=== PATIENT | female | born 1980 | race Caucasian/White ===

== ENCOUNTER 2016-10-08 09:09 | Outpatient (CLI) | payer OTHER ==
[~2016-10-08] VITALS: Ht 170.2 cm; Wt 89.8 kg
[~2016-10-08 09:09] MED LIST: AMLO5TAB2 PO; ETAN50PE SQ; FEXO60CA19; FOLI1TAB24 PO; HYDR-3583 PO; HYDROCODONE BIT/ACET; LISI40TA PO; METH2.5T PO; NF-ALLE180; OMEG-12 PO; SULF1TAB38; VITA1CAP59 PO
[2016-10-08 09:19] VITALS: BP 136/82
[2016-10-08 09:55] LABS: BASOPHILS % (AUTO) 0 % (0-10); EOSINOPHILS # (AUTO) 0.1 10^3/uL (0.0-0.3); EOSINOPHILS % (AUTO) 1 % (0-10); LYMPHOCYTES % (AUTO) 32 % (12-44); MEAN CORPUSCULAR HEMOGLOBIN 31 PG (25-34); MEAN CORPUSCULAR HGB CONC 33 G/DL (32-36); MEAN CORPUSCULAR VOLUME 94 FL (80-99); MEAN PLATELET VOLUME 10.6 FL (7.4-10.4); MONOCYTES # (AUTO) 0.4 X 10^3 (0.0-1.0); MONOCYTES % (AUTO) 7 % (0-12); NEUTROPHILS # (AUTO) 3.7 X 10^3 (1.8-7.8); NEUTROPHILS % (AUTO) 60 % (42-75); PLATELET COUNT 190 10^3/uL (130-400); RED BLOOD COUNT 4.79 10^6/uL (4.35-5.85); RED CELL DISTRIBUTION WIDTH 12.7 % (10.0-14.5); WHITE BLOOD COUNT 6.3 10^3/uL (4.3-11.0)
== END 2016-10-08 09:45 | disposition home or self-care (01) ==
LOC: PREOP 09:09
PROVIDERS: ATTEND Obstetrics & Gynecology
DX: Z01.812 Encounter for preprocedural laboratory examination (principal); Z11.2 Encounter for screening for other bacterial diseases; N93.8 Other specified abnormal uterine and vaginal bleeding; D64.9 Anemia, unspecified
CPT/HCPCS: 36415; 84703; 85025; 87081

== ENCOUNTER 2016-10-09 10:15 | Day surgery (SDC) | payer OTHER ==
[~2016-10-09] VITALS: Ht 170.2 cm; Wt 89.8 kg
[2016-10-09] MEDS ORDERED: LIDOCAINE PF 2% 5 ML (XYLOCAINE) VIAL ONE (10:33)
[2016-10-09] MEDS ORDERED: DEXAMETHASONE 10 MG/ML (DECADRON) 1 ML VIAL ONE (10:33)
[2016-10-09] MEDS ORDERED: ROCURONIUM 50 MG/5 ML (ZEMURON) VIAL IV ONE (10:33)
[2016-10-09] MEDS ORDERED: MIDAZOLAM 2 MG/2 ML (VERSED) VIAL ONE (10:33)
[2016-10-09] MEDS ORDERED: proPOfol 200 MG/20 ML (DIPRIVAN) VIAL IV ONE (10:33)
[2016-10-09] MEDS ORDERED: SEVOFLURANE (ULTANE) 15 ML INHAL SOLN ONE ×5 (10:33→13:49)
[2016-10-09] MEDS ORDERED: LACTATED RINGERS 1,000 ML IV ONE (10:33)
[2016-10-09] MEDS ORDERED: ONDANSETRON 4 MG/2 ML (SDV) Z0FRAN ONE (10:33)
[2016-10-09] MEDS ORDERED: fentaNYL INJECTION 100 MCG/2 ML AMP ONE (10:34)
[2016-10-09 10:55] VITALS: BP 136/79
[2016-10-09] MEDS ORDERED: ceFAZolin 1 GM/NS 50 ML IVPB IV ONE ×2 (11:00)
[2016-10-09] MEDS ORDERED: CATHETER FLUSH 10 ML SYR IV PRN (11:00)
[2016-10-09] MEDS: LACTATED RINGERS 1,000 ML IV PRN ×2 (11:04→12:30)
[2016-10-09] MEDS ORDERED: BUPIVACAINE 0.25% 30 ML (SENSORCAINE) VIAL ONE (11:35)
[2016-10-09] MEDS ORDERED: LACTATED RINGERS 1,000 ML IV PRN (11:39)
--- NOTE | 2016-10-09 11:50 | Progress Note-Pre Operative ---
Pre-Operative Progress Note H&P Reviewed The H&P was reviewed, patient examined and no changes noted. Date Seen by Provider: Oct 09, 2016 Time Seen by Provider: 11:50 Date H&P Reviewed: Oct 09, 2016 Time H&P Reviewed: 11:50 Pre-Operative Diagnosis: left ovary mass/DON/pelvic pain HAMZAH ALBERTS MD Oct 09, 2016 11:50 am
--- NOTE | 2016-10-09 11:52 | Progress Note-Post Operative ---
Post-Operative Progess Note Surgeon (s)/Carpet Mechanic (s) Surgeon HAMZAH ALBERTS MD Carpet Mechanic: Rosaline Flores are in Pre-Operative Diagnosis left ovary mass/DUB/pelvic pain and right shoulder pigmented lesion Post-Operative Diagnosis same with pelvic endometriosis and likely adenomyosis and with pelvic adhesions and with pathology pending Procedure & Operative Findings Date of Procedure 10/09/16 Procedure Performed/Findings excision right shoulder lesion and TLH with left salpingo-oophorectomy and right salpingectomy, and adhesio lysis Anesthesia Type Gen. Estimated Blood Loss Estimated blood loss (mL): lless than 100 cc Specimens/Packing Specimens Removed uterus both tubes left ovary skin lesion right shoulder Packing: none HAMZAH ALBRETS MD Oct 09, 2016 11:52
[2016-10-09] MEDS ORDERED: fentaNYL INJECTION 100 MCG/2 ML AMP IVP PRN ×2 (12:00→13:45)
[2016-10-09] MEDS ORDERED: WATER (STERILE) FOR INJ 10 ML BTL INJ ONE (12:00)
[2016-10-09] MEDS ORDERED: KETOROLAC 30 MG/ML VIAL IVP SCH (12:00)
[2016-10-09] MEDS ORDERED: ONDANSETRON 4 MG/2 ML (SDV) Z0FRAN IVP PRN ×2 (12:00→13:45)
[2016-10-09] MEDS ORDERED: MEPERIDINE (DEMEROL) INJ 50 MG/ML IVP PRN (13:45)
[2016-10-09] MEDS ORDERED: morphine INJ 10 MG/ML 1ML (SYR OR VIAL) IVP PRN (13:45)
[2016-10-09] MEDS: D5 LR IV SOLUTION 1,000 ML IV SCH ×3 (15:38→22:47)
[2016-10-09 16:00] VITALS: BP 130/78
[2016-10-09] MEDS: oxyCODONE/APAP 10/325MG (PERCOCET 10) TABLET PO PRN ×2 (16:10→18:36)
[2016-10-09 20:30] VITALS: BP 124/73
[2016-10-09] MEDS: KETOROLAC 30 MG/ML VIAL IVP SCH (20:51)
[2016-10-10 00:40] VITALS: BP 114/70
[2016-10-10] MEDS: KETOROLAC 30 MG/ML VIAL IVP SCH ×2 (02:33→08:47)
--- NOTE | 2016-10-10 07:49 | Progress Note-Standard ---
Standard Progress Note Progress Notes/Assess & Plan Date Seen by Provider: Oct 10, 2016 Time Seen by Provider: 07:48 Progress/Assessment & Plan patient without complaint. She is ambulating, voiding, tolerating by mouth, has good pain control, is requesting discharge home. Vital Signs Date Time Temp Pulse Resp B/P (MAP) Pulse Ox O2 Delivery O2 Flow Rate FiO2 10/10/16 00:40 98.0 106 18 114/70 96 Room Air 10/09/16 21:00 Room Air 10/09/16 20:30 98.0 96 18 124/73 96 Room Air 10/09/16 16:02 98 Room Air 10/09/16 16:00 97.8 89 18 130/78 97 Room Air 10/09/16 10:55 98.7 93 18 136/79 98 Room Air vital signs are stable. Patient is afebrile. Abdomen is benign. Bowel sounds are present. Extremities show no clubbing cyanosis. There is no Homans sign. Assessment and plan Postoperative day number 1 doing well. Plan is for discharge home with follow-up in clinic. Final Diagnosis pelvic pain and dysfunctional uterine bleeding left ovarian mass HAMZAH ALBERTS MD Oct 10, 2016 7:49 am
[2016-10-10] MEDS ORDERED: OXYC-465 PO (07:50)
[2016-10-10] MEDS ORDERED: IBUP-1780 PO (07:50)
[2016-10-10] MEDS ORDERED: DOCU100C37 PO (07:50)
--- NOTE | 2016-10-10 07:52 | Discharge Instructions ---
Discharge Instructions Discharge Medications New, Converted or Re-Newed RX: RX on Chart Patient Instructions Patient Instructions: as directed Return to The Hospital For: as directed Activity & Diet Discharge Diet: No Restrictions Activity as Tolerated: No Orders-Post D/C & Referrals Follow Up Appt: return to clinic as scheduled on Thursday, October 13, 2016 for staple and suture removal Call to make follow up appt. for patient in 4 weeks. Activity: Rest for 24 hours, than as tolerated. Wound Care: May remove Band-Aid tomorrow. Replace as desired. Keep incisions clean and dry. Wash daily with soap and water. Please call in RX to patient pharmacy. Diet: As tolerated-Clear Liquids only if nauseated. May shower or tub bathe as desired. No driving for 24 hours, no alcoholic beverages for 24 hours, and nothing per vagina (no tampons, douching, or intercourse) for 8 weeks. Patient to return to the clinic as soon as possible for: Temperature greater than 101F, Severe Pain, Foul discharge from incision or vagina, Excessive Bleeding (more than a period). HAMZAH ALBERTS MD Oct 10, 2016 7:52 am
[2016-10-10 08:00] VITALS: BP 118/70
[2016-10-10] MEDS ORDERED: DOCUSATE SODIUM 100 MG (COLACE) CAP PO SCH (09:00)
[2016-10-10 09:35] VITALS: BP 118/70
--- NOTE | 2016-10-10 11:17 | OPERATIVE REPORT ---
DATE OF SERVICE: 10/09/2016 PREOPERATIVE DIAGNOSIS: Dysfunctional uterine bleeding, left ovarian mass, chronic pelvic pain and pigmented lesion on the right shoulder. OPERATIVE PROCEDURE: Total laparoscopic hysterectomy with bilateral salpingectomy and left oophorectomy. Excision of a right shoulder pigmented lesion. OPERATIVE DESCRIPTION: With the patient in the supine position under satisfactory general anesthesia, she was repositioned in the dorsal lithotomy position in the [place] stirru and prepped and draped in the usual fashion for abdominal and vaginal surgery. Prior to this positioning the patient was rolled to her left, exposing the right posterior shoulder. There was a 1 cm somewhat exophytic, irregularly pigmented lesion that patient reported rapidly growing. The lesion had a suspicious appearance. It was excised by cutting along the lines of Mayda an ellipse approximately 1.5 cm in length. The full thickness of the skin was removed, removing the lesion in its entirety. The defect was then closed with 3 interrupted sutures of 3-0 nylon, effecting good hemostasis and good reapproximation. A Band-Aid was applied. The patient by now having been prepped and draped in the usual fashion for abdominal and vaginal surgery, the weighted speculum was placed in the posterior fornix of the vagina and the cervix was exposed and grasped anteriorly with a single-toothed tenaculum and the uterus was sounded to 11.5 cm with uterine sound. The cervix was then serially dilated with Gregor dilators to accommodate a uterine manipulator which was placed using a 6 mm x 8 cm uterine probe and a 30 mm colpotomy ring. The manipulator was affixed to the cervix using sutures of #1 Vicryl at the 3 and 9 o'clock position. The tenaculum was removed, the patient brought in low dorsal lithotomy position. Montoya catheter was placed in the urinary bladder and left to dependent drainage. A 12 mm incision was then made 3 cm superior to the umbilicus. Then, 8 mm incisions were made 9 cm lateral to the umbilicus. All incision sites were infiltrated with infiltrated with 0.25% Marcaine with epinephrine prior to incision. Veress needle was placed through the umbilical incision. Correct placement confirmed with a water drop test. The abdomen was insufflated with 2.4 liters of carbon dioxide and then the Veress needle was removed. A 12 mm port placed and under direct vision the laparoscope was introduced through that port and the abdominal wall was transilluminated and 8 mm ports were placed through the incision in the right and left lateral sites. The patient placed in Trendelenburg, allowing the bowel to spill up out of the pelvis. The instrument manipulator was positioned and using a vessel sealer on the right and a bipolar fenestrated grasper on the left, the pelvis was first examined. There was a large cystic mass involving the left ovary. There was endometriosis implants particularly on the right ovary and in the ovarian fossa on the left. The uterus was mottled in appearance consistent with adenomyosis. There were adhesions of the sigmoid over the left pelvic brim and over the left IP ligament. These adhesions were taken free with the vessel sealer, taking care to be well away from the bowel and to adjacent vascular and urologic structures. Decision was made to proceed with the intended procedure. The right fallopian tube was grasped and elevated. The mesosalpinx was clamped, cauterized and divided. This was continued stepwise across the mesosalpinx to the uteroovarian pedicle which was clamped, cauterized and divided, dividing the uteroovarian pedicle, the round ligament, the broad ligament and that was continued down to the cardinal ligament where it was clamped, cauterized and divided as well. The same procedure was performed on the left; however, the dissection was carried under the ovary crease and across the mesoovarian, allowing for removal of the left tube and ovary with the uterus eventually. The right lower quadrant had been examined. The appendix was surgically absent. The upper abdomen had been examined prior to initiating the hysterectomy and everything was normal up in the right upper quadrant where the liver edge was seen. The anterior lower uterine segment peritoneum was now divided after replacing the monopolar shear in place of the vessel sealer. The bladder was advanced up on the lower uterine segment and the dissection was carried under the bladder into the vesicovaginal space and then the bladder was carefully dissected down off of the lower uterine segment, exposing the colpotomy ring accessible through the vaginal wall. The colpotomy incision was made starting at 12 o'clock position onto the ring. The incision was continued circumferentially counterclockwise and clockwise until the entire colpotomy ring was exposed, cauterizing and sealing all blood vessels in the process. The uterus with the tubes and the left ovary still attached was extracted through the vagina. The vaginal cuff was closed with 3 sutures of V-Loc barbed sutures starting first from the right angle and continuing past the mid portion of the vaginal cuff and taking care to include the uterine vessels in the closure, even though they had been cauterized. Second suture was used from the left side to the mid portion of the vaginal cuff and then a third suture was used to help reapproximate the bladder peritoneum back down onto the vaginal cuff and ensure hemostasis at one point near the mid portion of the vaginal cuff. The pelvis was irrigated and examined for hemostasis which was complete. With no remaining abnormal pathology, hemostasis assured and sponge and needle counts correct, the procedure was terminated. The operative instruments were removed under direct vision as were the ports. The abdomen was evacuated of insufflating gas in the process of removing the ports. The skin incisions were closed with martell. The fascia at the supraumbilical incision was closed with [id number] suture of 2-0 Vicryl. Speculum was replaced in the vagina. The vaginal cuff examined and was found intact and hemostatic. Sponge and needle counts were correct at the end of the procedure. Estimated blood loss for the procedure was less than 100 mL. The patient tolerated the procedure well and was uneventfully awakened from her general anesthesia and transferred to the recovery room in stable condition. Job ID: [id number] DocumentID: [id number] Dictated Date: 10/09/2016 13:30:37 Director Microbiology Date: 10/10/2016 11:16:40 Dictated By: HAMZAH ALBERTS MD
[2016-10-10] MEDS ORDERED: IBUPROFEN 800 MG (MOTRIN) TAB PO SCH ×2 (12:00→14:00)
== END 2016-10-10 09:35 | disposition home or self-care (01) ==
LOC: SDC 10:15 → WS 14:41 → SDC 10-10 09:35
PROVIDERS: ATTEND Obstetrics & Gynecology
DX: D27.1 Benign neoplasm of left ovary (principal); D23.61 Other benign neoplasm of skin of right upper limb, including shoulder; N83.8 Other noninflammatory disorders of ovary, fallopian tube and broad ligament; N80.0 Endometriosis of uterus; Z87.891 Personal history of nicotine dependence
CPT/HCPCS: 86850; 86900; 86901; 88305; 88307; 94664

== ENCOUNTER → 2020-11-05 | Outpatient (CLI) | payer BC, OTHER ==
[~2020-11-05] MED LIST changes: +DOCU100C37 PO; -FOLI1TAB24 PO; +FOLI1TAB33 PO; +IBUP-1780 PO; -METH2.5T PO; +MTX2.5T PO; +OXYC-556 PO
--- NOTE | 2020-11-05 12:57 | Diagnostic Imaging Report ---
INDICATION: History of renal calculi. COMPARISON: 12/31/2008. FINDINGS: Two supine radiographic views of the abdomen were obtained. Small extraosseous calcifications are identified projecting over the inferior poles of both renal shadows. The largest calculus is seen on the right and measures approximately 4 to 5 mm in diameter. No unexpected radiopaque foreign bodies are seen. The small bowel loops are nondistended. There is no large collection of free intraperitoneal air. The osseous structures show no acute abnormalities. IMPRESSION: 1. Probable bilateral nephrolithiasis. 2. Nonobstructed small bowel gas pattern. Dictated by: Dictated on workstation # [id number]
== END ==
LOC: RAD 12:18
PROVIDERS: ATTEND Urology
DX: N20.0 Calculus of kidney (principal)
CPT/HCPCS: 74018

== ENCOUNTER 2020-11-08 10:40 | Outpatient (CLI) | payer BC ==
[~2020-11-08] VITALS: Ht 170.2 cm; Wt 109.1 kg
[2020-11-08] MEDS ORDERED: METO50TA7 PO (11:07)
== END 2020-11-08 11:21 | disposition home or self-care (01) ==
LOC: PREOP 10:40
PROVIDERS: ATTEND Urology
DX: Z01.818 Encounter for other preprocedural examination (principal)

== ENCOUNTER 2020-11-12 07:43 | Day surgery (SDC) | payer BC ==
[~2020-11-12] VITALS: Ht 170 cm; Wt 109.1 kg
[2020-11-12] VITALS (9 sets, daily range): BP systolic 92–151; BP diastolic 54–97
[~2020-11-12 07:43] MED LIST changes: +METO50TA7 PO
[2020-11-12] MEDS ORDERED: LACTATED RINGERS 1,000 ML IV PRN (08:00)
[2020-11-12] MEDS ORDERED: cefTRIAXone 1,000 MG in WATER (STERILE) FOR INJECTION 10 ML IV ONE (08:00)
[2020-11-12] MEDS ORDERED: MIDAZOLAM 2 MG/2 ML (VERSED) VIAL ONE (08:03)
[2020-11-12] MEDS ORDERED: LIDOCAINE PF 2% 5 ML (XYLOCAINE) VIAL ONE (08:03)
[2020-11-12] MEDS ORDERED: fentaNYL INJ 100 MCG/2 ML AMP ONE (08:03)
[2020-11-12] MEDS ORDERED: proPOfol 200 MG/20 ML (DIPRIVAN) VIAL IV ONE (08:03)
[2020-11-12] MEDS ORDERED: ONDANSETRON 4 MG/2 ML (SDV) Z0FRAN ONE (08:03)
--- NOTE | 2020-11-12 08:22 | Progress Note-Pre Operative ---
Pre-Operative Progress Note H&P Reviewed The H&P was reviewed, patient examined and no changes noted. Date Seen by Provider: Nov 12, 2020 Time Seen by Provider: 08:21 Date H&P Reviewed: Nov 12, 2020 Time H&P Reviewed: 08:21 Pre-Operative Diagnosis: LT DISTAL URETERAL AND RT RENAL STONE LARRY THOMAS MD Nov 12, 2020 08:22
--- NOTE | 2020-11-12 08:28 | Diagnostic Imaging Report ---
EXAMINATION: Abdomen 1 view HISTORY: ESWL COMPARISON: 10/28/2020 FINDINGS: There is a moderate amount of gas and stool throughout the colon. Nonobstructive bowel gas pattern. There is a 0.5 cm calcification overlying the right renal collecting system appears similar in size to prior radiograph. Right upper quadrant surgical clips are present. No other radiopaque foreign body. The osseous structures are intact. IMPRESSION: 1. Stable appearance of a 0.5 cm likely right renal calculus. 2. Moderate stool burden. Dictated by: Dictated on workstation # [id number]
[2020-11-12] MEDS ORDERED: SEVOFLURANE (ULTANE) 15 ML INHAL SOLN ONE (08:50)
[2020-11-12] MEDS ORDERED: ROCURONIUM 10 MG/ML 5 ML SYRINGE IV ONE (08:50)
[2020-11-12] MEDS ORDERED: KETOROLAC 30 MG/ML VIAL ONE (08:56)
[2020-11-12] MEDS ORDERED: FUROSEMIDE 40 MG/4 ML INJ (LASIX) ONE (08:56)
[2020-11-12] MEDS ORDERED: NEOSTIGMINE 3 MG/3 ML VIAL ONE (08:56)
[2020-11-12] MEDS ORDERED: GLYCOPYRROLATE 0.2 MG/ML (ROBINUL) 2 ML VIAL ONE (08:56)
[2020-11-12] MEDS ORDERED: ONDANSETRON 4 MG/2 ML (SDV) Z0FRAN IVP PRN (09:15)
[2020-11-12] MEDS ORDERED: HYDROmorphone 2 MG/ML VIAL (DILAUDID) IV ONE (09:15)
--- NOTE | 2020-11-12 09:21 | Progress Note-Post Operative ---
Post-Operative Progess Note Surgeon (s)/Food Scientist (s) Surgeon LARRY THOMAS MD Food Scientist: NONE Pre-Operative Diagnosis LT DISTAL URETERAL AND RT RENAL STONE Post-Operative Diagnosis SAME AND VAGINAL PROLAPSE Procedure & Operative Findings Date of Procedure 11/12/20 Procedure Performed/Findings CYSTOSCOPY, LT URETEROSCOPY WITH STONE LITHOTRIPSY Anesthesia Type GENERAL Estimated Blood Loss Estimated blood loss (mL): NONE Specimens/Packing Specimens Removed NONE Packing: NONE LARRY THOMAS MD Nov 12, 2020 09:21
[2020-11-12] MEDS ORDERED: TMSL.4C PO (09:28)
[2020-11-12] MEDS ORDERED: NITR-65 PO (09:28)
[2020-11-12] MEDS ORDERED: PHEN-640 PO (09:28)
[2020-11-12] MEDS ORDERED: KETO10TA PO (09:28)
--- NOTE | 2020-11-12 09:29 | Discharge Inst-Urology ---
Discharge Inst-Urology Reconcile Patient Problems Problems Reviewed?: Yes Final Diagnosis LT DISTAL URETERAL AND RT RENAL STONE Patient Instructions/Follow Up Plan/Assessment/Instructions Please make appointment to been seen in office NEXT WEEK Increase oral fluids for 48 hours and then as needed. Diet and Activity as tolerated. If questions or concerns contact your physician Or seek help at emergency department. LARRY THOMAS MD Nov 12, 2020 09:29
--- NOTE | 2020-11-12 11:41 | Anesthesia-General Post-Op ---
General Patient Condition Mental Status/LOC: Same as Preop Cardiovascular: Satisfactory Nausea/Vomiting: Absent Respiratory: Satisfactory Pain: Controlled Complications: Absent Post Op Complications Complications None Follow Up Care/Instructions Patient Instructions None needed. Anesthesia/Patient Condition Patient Condition Patient is doing well, no complaints, stable vital signs, no apparent adverse anesthesia problems. No complications reported per nursing. D/C home per [facility] Criteria: Yes PAULINA NGUYEN CRNA Nov 12, 2020 11:41
--- NOTE | 2020-11-12 16:07 | OPERATIVE REPORT ---
DATE OF SERVICE: 11/12/2020 PREOPERATIVE DIAGNOSES: 1. Left distal ureteral stone. 2. Right renal stone. POSTOPERATIVE DIAGNOSES: 1. Left distal ureteral stone. 2. Right renal stone. 3. Vaginal prolapse. OPERATION PERFORMED: Cystoscopy, right ureteroscopy with stone lithotripsy. SURGEON: Anderson Thomas MD ANESTHESIA: General. COMPLICATIONS: None. DESCRIPTION OF PROCEDURE: Under satisfactory general anesthesia, the patient in lithotomy position, genitalia were prepped and draped in the usual sterile fashion. Noted 2-3+ cystorectocele. Cystoscope was introduced in the bladder. The only abnormality was a protruding stone in the orifice of the left ureteral side with swelling and edema of the intramural portion. I removed the cystoscope and introduced the 6.9 [place] semi-rigid ureteroscope and with combination of manipulation and lithoclast, I was able to break and then disengaged the stone and break it up completely, went up all the way to the proximal ureter. No fragments, no further stone, went back again and the fragments were flowing and I went ahead and completely pulverized them and removed the ureteroscope. I inserted the cystoscope to empty the bladder. Because of the edema of the intramural portion and the orifice of the left side secondary to the longstanding stone and its impaction, I did not want to do a right ESWL for the right renal stone because of possible functional obstruction on the left side, complicated by passing of the stone and resulting bilateral obstruction in case she passes fragments on the right ESWL. So we postponed the right ESWL for two weeks after complete clearance of the left side problem. This was explained to her preoperatively and postoperatively to her family. The patient tolerated the procedure and anesthesia well and was sent to recovery room in stable condition. Job ID: [id number] DocumentID: [id number] Dictated Date: 11/12/2020 09:33:11 Doctor Osteopathic Date: 11/12/2020 16:06:17 Dictated By: ANDERSON THOMAS MD
== END 2020-11-12 10:55 | disposition home or self-care (01) ==
LOC: SDC 07:43
PROVIDERS: ATTEND Urology
DX: N20.2 Calculus of kidney with calculus of ureter (principal); N81.10 Cystocele, unspecified; I10 Essential (primary) hypertension; M06.9 Rheumatoid arthritis, unspecified; E66.9 Obesity, unspecified; Z68.38 Body mass index [BMI] 38.0-38.9, adult; Z79.899 Other long term (current) drug therapy; Z11.2 Encounter for screening for other bacterial diseases
CPT/HCPCS: 74018; 76000; 87081

== ENCOUNTER → 2020-11-18 | Outpatient (CLI) | payer BC ==
[~2020-11-18] MED LIST changes: +KETO10TA PO; +NITR-65 PO; +PHEN-640 PO; +TMSL.4C PO
--- NOTE | 2020-11-18 15:18 | Diagnostic Imaging Report ---
INDICATION: Left flank pain KUB at 3:11 PM Bowel gas pattern is normal. There are no calculi seen in either kidney. There is a small opacity in the pelvis that could be phleboliths versus ureteral calculi. This appears unchanged from 11/12/2020. IMPRESSION: Calcifications in the left lower pelvis could be phleboliths versus calculi. Dictated by: Dictated on workstation # [id number]
== END ==
LOC: RAD 14:51
PROVIDERS: ATTEND Urology
DX: N20.1 Calculus of ureter (principal)
CPT/HCPCS: 74018

== ENCOUNTER 2020-11-20 07:04 | Outpatient (CLI) | payer BC ==
[~2020-11-20] VITALS: Ht 170 cm; Wt 109.1 kg
== END 2020-11-20 13:47 ==
LOC: PREOP 07:04
PROVIDERS: ATTEND Urology
DX: Z01.818 Encounter for other preprocedural examination (principal)

== ENCOUNTER 2020-11-26 09:14 | Day surgery (SDC) | payer BC ==
[~2020-11-26] VITALS: Ht 170 cm; Wt 109.1 kg
[2020-11-26] VITALS (12 sets, daily range): BP systolic 97–165; BP diastolic 48–101
[2020-11-26] MEDS ORDERED: cefTRIAXone 1,000 MG in WATER (STERILE) FOR INJECTION 10 ML IV ONE (09:30)
[2020-11-26] MEDS ORDERED: LACTATED RINGERS 1,000 ML IV PRN (09:30)
--- NOTE | 2020-11-26 09:51 | Progress Note-Pre Operative ---
Pre-Operative Progress Note H&P Reviewed The H&P was reviewed, patient examined and no changes noted. Date Seen by Provider: Nov 26, 2020 Time Seen by Provider: 09:51 Date H&P Reviewed: Nov 26, 2020 Time H&P Reviewed: 09:51 Pre-Operative Diagnosis: RT RENAL STONE LARRY THOMAS MD Nov 26, 2020 09:51
--- NOTE | 2020-11-26 09:55 | Diagnostic Imaging Report ---
EXAMINATION: Abdomen 1 view HISTORY: ESWL COMPARISON: 11/18/2020 FINDINGS: There is a moderate amount of gas and stool throughout the colon. Nonobstructive bowel gas pattern. There is a 0.6 cm opacity overlying the right mid abdomen which was not seen on prior radiograph of 11/18/2020. Stable calcification or phlebolith in the left pelvis. The lung bases are clear. The osseous structures are intact. IMPRESSION: A 0.6 cm opacity within the right mid abdomen which could represent a ureteral calculus. Dictated by: Dictated on workstation # [id number]
[2020-11-26] MEDS ORDERED: proPOfol 200 MG/20 ML (DIPRIVAN) VIAL IV ONE (11:49)
[2020-11-26] MEDS ORDERED: fentaNYL INJ 100 MCG/2 ML AMP ONE (11:49)
[2020-11-26] MEDS ORDERED: MIDAZOLAM 2 MG/2 ML (VERSED) VIAL ONE (11:49)
[2020-11-26] MEDS ORDERED: LIDOCAINE PF 2% 5 ML (XYLOCAINE) VIAL ONE (11:49)
[2020-11-26] MEDS ORDERED: ONDANSETRON 4 MG/2 ML (SDV) Z0FRAN ONE (11:49)
--- NOTE | 2020-11-26 12:03 | Progress Note-Post Operative ---
Post-Operative Progess Note Surgeon (s)/Separator Inserter (s) Surgeon LARRY THOMAS MD Separator Inserter: NONE Pre-Operative Diagnosis RT RENAL STONE Post-Operative Diagnosis RT URETERAL STONE Procedure & Operative Findings Date of Procedure 11/26/20 Procedure Performed/Findings RT ESWL Anesthesia Type GENERAL Estimated Blood Loss Estimated blood loss (mL): NONE Specimens/Packing Specimens Removed NONE Packing: NONE LARRY THOMAS MD Nov 26, 2020 12:03
[2020-11-26] MEDS ORDERED: KETOROLAC 30 MG/ML VIAL ONE (12:05)
[2020-11-26] MEDS ORDERED: FUROSEMIDE 40 MG/4 ML INJ (LASIX) ONE (12:05)
--- NOTE | 2020-11-26 12:05 | Discharge Inst-Urology ---
Discharge Inst-Urology Reconcile Patient Problems Problems Reviewed?: Yes Final Diagnosis RT URETERAL STONE Patient Instructions/Follow Up Plan/Assessment/Instructions Please make appointment to been seen in office Saturday 12/09. KUB prior to it KUB on way home Post ESWL instructions Increase oral fluids for 48 hours and then as needed. Diet and Activity as tolerated. If questions or concerns contact your physician Or seek help at emergency department. LARRY THOMAS MD Nov 26, 2020 12:05
[2020-11-26] MEDS ORDERED: SEVOFLURANE (ULTANE) 15 ML INHAL SOLN ONE (12:20)
[2020-11-26] MEDS ORDERED: HYDROmorphone 2 MG/ML VIAL (DILAUDID) IV ONE (12:30)
[2020-11-26] MEDS ORDERED: morphine INJ 10 MG/ML 1ML (SYR OR VIAL) IVP ONE (12:30)
[2020-11-26] MEDS ORDERED: MEPERIDINE (DEMEROL) INJ 50 MG/ML IVP ONE (12:30)
[2020-11-26] MEDS ORDERED: ONDANSETRON 4 MG/2 ML (SDV) Z0FRAN IVP PRN (12:30)
--- NOTE | 2020-11-26 13:30 | Anesthesia-General Post-Op ---
General Patient Condition Mental Status/LOC: Same as Preop Cardiovascular: Satisfactory Nausea/Vomiting: Absent Respiratory: Satisfactory Pain: Controlled Complications: Absent Post Op Complications Complications None Follow Up Care/Instructions Patient Instructions None needed. Anesthesia/Patient Condition Patient Condition Patient is doing well, no complaints, stable vital signs, no apparent adverse anesthesia problems. No complications reported per nursing. MAGGI CAREY CRNA Nov 26, 2020 13:30
[2020-11-26] MEDS ORDERED: NITR-65 PO (14:12)
[2020-11-26] MEDS ORDERED: TMSL.4C PO (14:12)
--- NOTE | 2020-11-26 14:24 | Diagnostic Imaging Report ---
EXAMINATION: Abdomen 1 view HISTORY: POST OP ESWL COMPARISON: 11/26/2020 FINDINGS: There is a moderate amount of gas and stool throughout the colon. Nonobstructive bowel gas pattern. No radiopaque foreign body. Right upper quadrant cholecystectomy clips are present. No visualized renal calculi are seen. The previously seen calculus along the right midabdomen is no longer visualized. The lung bases are clear. The osseous structures are intact. IMPRESSION: Resolution of the previously seen right midabdomen calculus. Dictated by: Dictated on workstation # [id number]
--- NOTE | 2020-11-27 01:06 | OPERATIVE REPORT ---
DATE OF SERVICE: 11/26/2020 PREOPERATIVE DIAGNOSIS: Right proximal ureteral stone. POSTOPERATIVE DIAGNOSIS: Right proximal ureteral stone. OPERATION PERFORMED: Right ESWL. SURGEON: Anderson Thomas MD ANESTHESIA: General. COMPLICATIONS: None. DESCRIPTION OF PROCEDURE: Under satisfactory general anesthesia, the patient in supine position on the ESWL table, the original right renal stone had moved this morning down to the right proximal ureter, so we localized it and delivered shocks at kV of 6, a total of 2000 shocks completely fragmented the stone that was not visualized anymore. The patient received 40 mg of Lasix and 30 mg of Toradol IV at the end of the procedure. She tolerated the procedure and anesthesia well and was sent to recovery room in a stable condition. CC: Dr. Madrigal - requested, unable to deliver. Job ID: [id number] DocumentID: [id number] Dictated Date: 11/26/2020 12:24:10 Golf Course Manager Date: 11/26/2020 20:34:24 Dictated By: ANDERSON THOMAS MD
== END 2020-11-26 14:25 | disposition home or self-care (01) ==
LOC: SDC 09:14
PROVIDERS: ATTEND Urology
DX: N20.1 Calculus of ureter (principal); Z11.2 Encounter for screening for other bacterial diseases; I10 Essential (primary) hypertension; M06.9 Rheumatoid arthritis, unspecified; Z80.0 Family history of malignant neoplasm of digestive organs; Z79.899 Other long term (current) drug therapy
CPT/HCPCS: 74018; 87081

== ENCOUNTER 2020-12-23 12:38 | Outpatient (RCR) | payer BC, OTHER ==
--- NOTE | 2020-12-09 13:58 | Diagnostic Imaging Report ---
INDICATION: History of renal calculi. COMPARISON: 11/26/2020. FINDINGS: Two supine radiographic views of the abdomen were obtained. The small bowel loops are nondistended. There is no large collection of free intraperitoneal air. Multiple small extraosseous calcifications are seen projecting over the inferior pole of the left kidney and are suggestive of renal calculi. No unexpected radiopaque foreign bodies are seen. The osseous structures show no acute abnormalities. IMPRESSION: 1. Probable left-sided nephrolithiasis. 2. Nonobstructed small bowel gas pattern. Dictated by: Dictated on workstation # [id number]
== END 2021-02-07 | disposition home or self-care (01) ==
LOC: RAD 12:38
PROVIDERS: ATTEND Urology
DX: N20.1 Calculus of ureter (principal)
CPT/HCPCS: 36415; 74018; 82140; 82340; 82507; 82570; 83735; 83945; 83986; 84105; 84133; 84300; 84392; 84560

== ENCOUNTER → 2021-08-13 | Outpatient (CLI) | payer BC ==
[~2021-08-13] MED LIST changes: -ETAN50PE SQ; +ETAN50PE3 SQ
--- NOTE | 2021-08-13 15:28 | Diagnostic Imaging Report ---
Indication: Kidney stones and back pain. Time of Exam: 2:00 p.m. Comparison is made to prior radiograph from 12/09/2020. There are several calcific densities overlying the left renal shadow, both in the upper and lower pole. No definite calculi along the course of the ureters are identified. Bowel gas pattern is nonobstructed. IMPRESSION: Probable left-sided nephrolithiasis. No other significant abnormality is seen. Dictated by: Dictated on workstation # [id number]
== END ==
LOC: RAD 13:34
PROVIDERS: ATTEND Urology
DX: M54.9 Dorsalgia, unspecified (principal); Z87.442 Personal history of urinary calculi
CPT/HCPCS: 74018

== ENCOUNTER 2022-04-19 09:25 | Emergency (ER) | payer BC ==
[~2022-04-19] VITALS: Ht 170.1 cm; Wt 109.1 kg
--- NOTE | 2022-04-19 10:27 | ED Lower Extremity ---
General Chief Complaint: Lower Extremity Stated Complaint: LEFT KNEE FALL Nursing Triage Note: fell twisting left knee yesterday around 1630. rates pain 4/10 at rest adn 10/10 during activity Source: patient Exam Limitations: no limitations History of Present Illness Date Seen by Provider: Apr 19, 2022 Time Seen by Provider: 09:55 Initial Comments Patient is a 42-year-old female who presents to the emergency room with a chief complaint of medial left knee pain. Patient states around 4:00 yesterday she was carrying a laundry basket and slipped twisting her left leg behind her. Patient states she had significant pain but was able to get up and limp around. She continues to have significant pain when bearing weight. No numbness tingling or weakness to the foot. No hip pain. No ankle pain. Onset: yesterday Severity: moderate Pain/Injury Location: left knee Method of Injury: fell, twisted Modifying Factors: Improves With Immobilization; Worse With Movement Allergies and Home Medications Allergies Coded Allergies: No Known Allergies (Verified Allergy, Unknown, 07/30/05) Patient Home Medication List Home Medication List Reviewed: Yes Etanercept (Enbrel) 50 Mg/1 Ml Pen.injctr, 50 MG SQ weekly, (Reported) Entered as Reported by: DICK SCHUMACHER on 02/04/15 1033 Folic Acid (Folic Acid) 1 Mg Tablet, 2 MG PO DAILY, (Reported) Entered as Reported by: DICK SCHUMACHER on 02/04/15 1028 Methotrexate Tablet (Methotrexate Tablet) 2.5 Mg Tablet, 20 MG PO WEEK, (Reported) Entered as Reported by: DICK SCHUMACHER on 02/04/15 1028 Metoprolol Succinate (Metoprolol Succinate) 50 Mg Tab.er.24h, 50 MG PO DAILY, (Reported) Entered as Reported by: RESHMA STEVENS on 11/08/20 1107 Nitrofurantoin Monohyd/M-Cryst (Macrobid 100 mg Capsule) 100 Mg Capsule, 1 TAB PO BID WITH MEALS Prescribed by: TRESSA GARNER on 11/26/20 141 Tamsulosin HCl (Flomax) 0.4 Mg Cap, 0.4 MG PO DAILY Prescribed by: TRESSA GARNER on 11/26/20 141 Review of Systems Constitutional: see HPI Musculoskeletal: joint pain (left knee) Skin: no symptoms reported All Other Systems Reviewed Negative Unless Noted: Yes Past Yrtcawg-Fovahz-Afqext Hx Patient Social History Tobacco Use?: No Use of E-Cig and/or Vaping dev: No Substance use?: No Alcohol Use?: Yes Alcohol Frequency: Rarely Immunizations Up To Date Tetanus Booster (TDap): Unknown First/Initial COVID19 Vaccinat: 04/15/20 Second COVID19 Vaccination Fredi: 05/14/20 Seasonal Allergies Seasonal Allergies: Yes (OCCASIONAL) Past Medical History Surgeries: Yes (CYST REMOVED OFF TAILBONE, C/S x2, kidney stones) Adenoidectomy, Appendectomy, Section, Gallbladder, Tonsillectomy Respiratory: No Cardiac: Yes Hypertension Neurological: No Reproductive Disorders: Yes (DUB, PELVIC MASS, LEFT OVARIAN MASS) [employer] TE[employer]ER History: Hysterectomy Sexually Transmitted Disease: No Genitourinary: Yes Kidney Stones Gastrointestinal: No Musculoskeletal: Yes Rheumatoid Arthritis Endocrine: No HEENT: No (WEARS GLASSES) Loss of Vision: Bilateral Hearing Impairment: Denies Cancer: No Psychosocial: No Integumentary: No Blood Disorders: No Family Medical History Colon cancer 19 MOTHER Diabetes mellitus 19 MOTHER Hypertension 19 MOTHER G8 BROTHER G8 SISTER Thyroid disease 19 MOTHER Physical Exam Vital Signs Vital Signs - First Documented 04/19/22 09:34 Temp 37.1 Pulse 82 Resp 18 B/P (MAP) 132/83 (99) Pulse Ox 96 O2 Delivery Room Air Capillary Refill : Less Than 3 Seconds Height, Weight, BMI Height: 5'7.00" Weight: 198lbs. 0.0oz. 89.449634uo; 37.00 BMI Method: General Appearance: WD/WN, no apparent distress HEENT: PERRL/EOMI Cardiovascular: regular rate, rhythm Respiratory: no respiratory distress, no accessory muscle use Hips: bilateral hip non-tender, bilateral hip normal inspection, bilateral hip normal range of motion, bilateral hip no evidence of injury Legs: bilateral leg non-tender, bilateral leg normal inspection, bilateral leg normal range of motion, bilateral leg no evidence of injury Knees: left knee pain (medial joint line), left knee swelling (mild) Feet: bilateral foot non-tender, bilateral foot normal inspection, bilateral foot normal range of motion, bilateral foot no evidence of injury Neurologic/Tendon: normal sensation, normal motor functions, normal tendon functions Neurologic/Psychiatric: alert, normal mood/affect, oriented x 3 Skin: normal color, warm/dry Progress/Results/Core Measures Results/Orders My Orders Orders - LUCILLE ESCOBEDO MD Knee, Left, 3 Views (04/19/22 10:02) Vital Signs/I&O 04/19/22 04/19/22 09:34 11:05 Temp 37.1 Pulse 82 83 Resp 18 18 B/P (MAP) 132/83 (99) 128/78 Pulse Ox 96 97 O2 Delivery Room Air Room Air Blood Pressure Mean: 99 Diagnostic Imaging Diagonstic Imaging: Xray Comments [facility] [place], [place] NAME: LM BANSAL MED REC#: [id number] PT STATUS: REG ER : 1980 PHYSICIAN: LUCILLE ESCOBEDO MD ADMIT DATE: 04/19/22/ER Signed Date of Exam:04/19/22 KNEE, LEFT, 3 VIEWS CLINICAL HISTORY: Fall. Left knee pain. COMPARISON: None. TECHNIQUE: 3 views of the left knee. FINDINGS: There is no acute fracture or dislocation of the left knee. Alignment is anatomic. The imaged joint spaces are preserved. No focal osseous lesions. IMPRESSION: 1. No acute fracture or dislocation of the left knee. Dictated by: Dictated on workstation # [id number] Dict: 04/19/22 1043 Trans: 04/19/22 1054 [facility] [id number] Interpreted by: ISAC GREWAL DO Electronically signed by: ISAC GREWAL DO 04/19/22 1054 Departure Impression Primary Impression: Acute traumatic internal derangement of left ankle Qualified Codes: S93.05XA - Dislocation of left ankle joint, initial encounter Disposition: 01 HOME, SELF-CARE Condition: Stable Departure-Patient Inst. Decision time for Depature: 11:00 Referrals: KRISTYN CARBONE MD (PCP/Family) Primary Care Physician MAGGI GARNER MD, MICHAEL P MD Patient Instructions: Ligament Injuries in the Knee (DC) Add. Discharge Instructions: Continue to ice your knee off and on for the next 24 hours. Keep it elevated to decrease swelling. Nioh-nei-uojvzcw Aleve or generic equivalent, 2 tablets twice a day with food as needed for pain. You might consider using crutches for assistance with weightbearing over the next 24 to 48 hours. Please follow-up with your primary care physician or with orthopedics. We have Dr. Granados here at [place] as well as Dr. Garner. Contact information is attached. Return to the emergency department for any new, concerning or emergent complaints. Copy Copies To 1: KRISTYN CARBONE MD, KATHRYN M MD Apr 19, 2022 10:27
--- NOTE | 2022-04-19 10:48 | Diagnostic Imaging Report ---
CLINICAL HISTORY: Fall. Left knee pain. COMPARISON: None. TECHNIQUE: 3 views of the left knee. FINDINGS: There is no acute fracture or dislocation of the left knee. Alignment is anatomic. The imaged joint spaces are preserved. No focal osseous lesions. IMPRESSION: 1. No acute fracture or dislocation of the left knee. Dictated by: Dictated on workstation # [id number]
[2022-04-19 11:05] VITALS: BP 128/78
== END 2022-04-19 11:05 | disposition home or self-care (01) ==
LOC: EDUNIT# 09:25 → ER 09:27
DX: M24.172 Other articular cartilage disorders, left ankle (principal); M25.562 Pain in left knee; W01.0XXA Fall on same level from slipping, tripping and stumbling without subsequent striking against object, initial encounter; X50.1XXA Overexertion from prolonged static or awkward postures, initial encounter
CPT/HCPCS: 73562

== ENCOUNTER → 2022-05-05 | Outpatient (CLI) | payer BC | LOC: ORTHO 08:40 | PROVIDERS: ATTEND Orthopaedic Surgery | DX: X58.XXXA Exposure to other specified factors, initial encounter (principal) | CPT/HCPCS: 99203 ==

== ENCOUNTER → 2022-05-14 | Outpatient (CLI) | payer BC ==
--- NOTE | 2022-05-14 11:22 | Diagnostic Imaging Report ---
PROCEDURE: MRI left joint lower extremity without contrast. TECHNIQUE: Multiplanar, multisequence non contrast-enhanced MRI of the left lower extremity was accomplished. INDICATION: Left knee pain, medial meniscus tear. COMPARISON: Radiographs from 04/19/2022 FINDINGS: No acute fracture is seen in the left knee. There is mild lateral patellar tilt, otherwise alignment appears normal. There is a small left knee joint effusion. The articular cartilage in the patellofemoral compartment demonstrates heterogeneity with no full-thickness defects. The articular cartilage in the medial compartment demonstrates mild thinning with no full-thickness defects. The cartilage in the lateral compartment demonstrates mild thinning and surface irregularity with no full-thickness defects. The medial and lateral menisci are intact. There is edema and partial tearing of the medial collateral ligament. The lateral collateral ligamentous complex appears intact. The extensor mechanism is intact. There may be partial tearing at the medial retinaculum. The lateral retinaculum appears intact. There is a small Arauz's cyst. Varicose vein is noted posteriorly. IMPRESSION: 1. Grade 2 sprain of the medial collateral ligament. Possible tear at the medial retinaculum. 2. Small left knee joint effusion with a small Arauz's cyst. Dictated by: Dictated on workstation # [id number]
== END ==
LOC: RAD 09:46
PROVIDERS: ATTEND Orthopaedic Surgery
DX: S83.412A Sprain of medial collateral ligament of left knee, initial encounter (principal); S83.242A Other tear of medial meniscus, current injury, left knee, initial encounter; M71.22 Synovial cyst of popliteal space [Baker], left knee; X58.XXXA Exposure to other specified factors, initial encounter
CPT/HCPCS: 73721

== ENCOUNTER → 2022-06-09 | Outpatient (CLI) | payer BC | LOC: ORTHO 14:16 | PROVIDERS: ATTEND Orthopaedic Surgery | DX: S83.412A Sprain of medial collateral ligament of left knee, initial encounter (principal) | CPT/HCPCS: 99213 ==

== ENCOUNTER → 2022-12-14 | Outpatient (CLI) | payer BC ==
[2022-12-14 14:26] LABS: BASOPHILS # (AUTO) 0.1 10^3/uL (0.0-0.1); BASOPHILS % (AUTO) 1 % (0-10); EOSINOPHILS # (AUTO) 0.2 10^3/uL (0.0-0.3); EOSINOPHILS % (AUTO) 3 % (0-10); HEMATOCRIT 45 % (35-52); HEMOGLOBIN 14.5 g/dL (11.5-16.0); LYMPHOCYTES # (AUTO) 2.4 10^3/uL (1.0-4.0); LYMPHOCYTES % (AUTO) 41 % (12-44); MEAN CORPUSCULAR HEMOGLOBIN 32 pg (25-34); MEAN CORPUSCULAR HGB CONC 33 g/dL (32-36); MEAN CORPUSCULAR VOLUME 97 fL (80-99); MEAN PLATELET VOLUME 10.7 fL (9.0-12.2); MONOCYTES # (AUTO) 0.5 10^3/uL (0.0-1.0); MONOCYTES % (AUTO) 8 % (0-12); NEUTROPHILS # (AUTO) 2.8 10^3/uL (1.8-7.8); NEUTROPHILS % (AUTO) 47 % (42-75); PLATELET COUNT 278 10^3/uL (130-400); WHITE BLOOD COUNT 5.9 10^3/uL (4.3-11.0)
[2022-12-14 14:43] LABS: CALCIUM 9.4 MG/DL (8.5-10.1); CREATININE SERUM 0.88 MG/DL (0.60-1.30); POTASSIUM 4.3 MMOL/L (3.6-5.0)
[2022-12-14 14:55] LABS: ERYTHROCYTE SEDIMENTATION RATE 13 MM/HR (0-20)
== END ==
LOC: WOUNDCARE 13:16
PROVIDERS: ATTEND Family Medicine
DX: T81.31XA Disruption of external operation (surgical) wound, not elsewhere classified, initial encounter (principal); I96 Gangrene, not elsewhere classified; S30.851A Superficial foreign body of abdominal wall, initial encounter; R63.4 Abnormal weight loss; Z79.60 Long term (current) use of unspecified immunomodulators and immunosuppressants; Z68.37 Body mass index [BMI] 37.0-37.9, adult; X58.XXXA Exposure to other specified factors, initial encounter
CPT/HCPCS: 11042; 80048; 82607; 84134; 85025; 85652; 86141; 87070; 87077; 87186; 87205; A6212; A6266; G0463; 36415

== ENCOUNTER → 2022-12-21 | Outpatient (CLI) | payer BC | LOC: WOUNDCARE 10:57 | PROVIDERS: ATTEND Family Medicine | DX: T81.31XA Disruption of external operation (surgical) wound, not elsewhere classified, initial encounter (principal); S30.851A Superficial foreign body of abdominal wall, initial encounter; R63.4 Abnormal weight loss; Z79.60 Long term (current) use of unspecified immunomodulators and immunosuppressants; Z68.37 Body mass index [BMI] 37.0-37.9, adult | CPT/HCPCS: 11042; A6212; G0463 ==

== ENCOUNTER → 2022-12-28 | Outpatient (CLI) | payer BC | LOC: WOUNDCARE 10:48 | PROVIDERS: ATTEND Family Medicine | DX: T81.31XA Disruption of external operation (surgical) wound, not elsewhere classified, initial encounter (principal); S30.851A Superficial foreign body of abdominal wall, initial encounter; R63.4 Abnormal weight loss; Z68.37 Body mass index [BMI] 37.0-37.9, adult; Z79.60 Long term (current) use of unspecified immunomodulators and immunosuppressants | CPT/HCPCS: 11042; A6197; A6212; G0463 ==

== ENCOUNTER → 2023-01-04 | Outpatient (CLI) | payer BC | LOC: WOUNDCARE 11:00 | PROVIDERS: ATTEND Family Medicine | DX: T81.31XA Disruption of external operation (surgical) wound, not elsewhere classified, initial encounter (principal); S30.851A Superficial foreign body of abdominal wall, initial encounter; R63.4 Abnormal weight loss; Z79.60 Long term (current) use of unspecified immunomodulators and immunosuppressants; Z68.37 Body mass index [BMI] 37.0-37.9, adult; X58.XXXA Exposure to other specified factors, initial encounter | CPT/HCPCS: 11042; A6212; G0463 ==

== ENCOUNTER → 2023-01-11 | Outpatient (CLI) | payer BC | LOC: WOUNDCARE 10:54 | PROVIDERS: ATTEND Family Medicine | DX: T81.31XA Disruption of external operation (surgical) wound, not elsewhere classified, initial encounter (principal); S30.851A Superficial foreign body of abdominal wall, initial encounter; R63.4 Abnormal weight loss; Z79.60 Long term (current) use of unspecified immunomodulators and immunosuppressants; Z68.37 Body mass index [BMI] 37.0-37.9, adult; X58.XXXA Exposure to other specified factors, initial encounter | CPT/HCPCS: 11042; A6212; G0463 ==